=== PATIENT | female | born 2000 | race Caucasian/White ===

== ENCOUNTER 2018-09-10 16:50 | Emergency (ER) | payer OTHER ==
[2018-09-10 17:38] VITALS: BP 117/73
[2018-09-10] MEDS ORDERED: Ibuprofen TAB* 600 MG PO ONE (18:18)
[2018-09-10] MEDS ORDERED: Acetaminophen TAB* 325 MG PO ONE (18:18)
--- NOTE | 2018-09-10 18:22 | ED ---
Back Pain - HPI Summary HPI Summary: pt is in the [employer]. she states that she has been having right lower back pain. she denies any bowel or urinary incontinence. she denies any saddle paresthesias. she states it is worse with movement. she denies being . she denies any dysuria, hematuria or frequency. - History of Current Complaint Chief Complaint: UCBackPain Stated Complaint: LOWER RT BACK PAIN x 2 DAYS Hx Obtained From: Patient Hx Last Menstrual Period: unknown, oral BC Onset/Duration: Sudden Onset Onset/Duration: Started Days Ago Timing: Intermittent Severity Initially: Mild Severity Currently: Mild Pain Intensity: 5 Character: Aching Aggravating Symptom(s): Movement Alleviating Symptom(s): Rest - Allergies/Home Medications Allergies/Adverse Reactions: Allergies Allergy/AdvReac Type Severity Reaction Status Date / Time No Known Allergies Allergy Verified 09/10/18 17:33 Home Medications: Home Medications Norethindrone-E.estradiol-Iron [Junel Fe 24 1-20 mg-Mcg(24)] 1 tab PO DAILY 04/22 [History Confirmed 09/10/18] PMH/Surg Hx/FS Hx/Imm Hx Previously Healthy: Yes Endocrine/Hematology History: Denies: Hx Anticoagulant Therapy Respiratory History: Denies: Hx Asthma Infectious Disease History: No Infectious Disease History: Denies: Traveled Outside the [place] in Last 30 Days - Social History Alcohol Use: None Substance Use Type: Reports: None Smoking Status (MU): Never Smoked Tobacco Review of Systems Constitutional: Negative Eyes: Negative ENT: Negative Cardiovascular: Negative Respiratory: Negative Gastrointestinal: Negative Genitourinary: Negative Positive: Myalgia. Negative: Arthralgia, Decreased ROM, Edema Skin: Negative Neurological: Negative Psychological: Normal All Other Systems Reviewed And Are Negative: No Physical Exam Triage Information Reviewed: Yes Vital Signs On Initial Exam: Initial Vitals Temp Pulse Resp BP Pulse Ox 98.4 F 84 14 117/73 99 09/10/18 17:32 09/10/18 17:32 09/10/18 17:32 09/10/18 17:32 09/10/18 17:32 Vital Signs Reviewed: Yes Appearance: Positive: Well-Appearing, No Pain Distress, Well-Nourished Skin: Positive: Warm, Dry Head/Face: Positive: Normal Head/Face Inspection Eyes: Positive: Normal, EOMI, AI ENT: Positive: Normal ENT inspection, Hearing grossly normal, Pharynx normal Neck: Positive: Supple, Nontender Respiratory/Lung Sounds: Positive: Clear to Auscultation, Breath Sounds Present Cardiovascular: Positive: Normal, RRR Abdomen Description: Positive: Nontender, Soft Bowel Sounds: Positive: Present Musculoskeletal: Positive: Normal, Strength/ROM Intact Neurological: Positive: Normal, Sensory/Motor Intact, Alert, Oriented to Person Place, Time, CN Intact II-III, Normal Gait Psychiatric: Positive: Normal AVPU Assessment: Alert Diagnostics - Vital Signs Vital Signs Temp Pulse Resp BP Pulse Ox 09/10/18 17:32 98.4 F 84 14 117/73 99 - Laboratory Lab Statement: Any lab studies that have been ordered have been reviewed, and results considered in the medical decision making process. Back Pain Course/Dx - Course Course Of Treatment: pt's pain is consistent with muscle strain. pt encouraged to stretch, use heating pad and take tylenol and motrin. pt voiced understanding of all instructions. - Diagnoses Provider Diagnoses: Muscle strain Discharge - Sign-Out/Discharge Documenting (check all that apply): Patient Departure All imaging exams completed and their final reports reviewed: No Studies - Discharge Plan Condition: Stable Disposition: HOME Patient Education Materials: Muscle Strain (ED) Referrals: No Primary Care Phys,NOPCP [Primary Care Provider] - - Billing Disposition and Condition Condition: STABLE Disposition: Home
== END 2018-09-10 18:28 | disposition home or self-care (01) ==
LOC: UCCORT 16:50
DX: S39.012A Strain of muscle, fascia and tendon of lower back, initial encounter (principal); X58.XXXA Exposure to other specified factors, initial encounter; Y93.43 Activity, gymnastics; Y92.9 Unspecified place or not applicable
CPT/HCPCS: 99202; A9270-GY; G0463